=== PATIENT | female | born 1965 | race Caucasian/White ===

== ENCOUNTER 2016-07-30 09:32 | Emergency (ER) | payer OTHER, MEDICARE ==
[~2016-07-30] VITALS: Ht 162.6 cm; Wt 73.5 kg
[~2016-07-30 09:32] MED LIST: ALBUTEROL0.09 MG/A1 INH; AMOXIL500 MG PO; AZITHROMYCIN250 MG PO; AZITHROMYCIN500 MG PO; BACTROBAN OINT.15 GM TP; ELIMITE5% TOP; GUAIFENESIN-COD10 ML PO; LEVAQUIN500 MG PO; LIDODERM 5% PAT1 PAT EXT; MEDROL4 M2 PO; MOTRIN 600 MG600 MG PO; NASONEX17 GM NASB; NOVAPLUS V0.09 MG/Ac INH; PERCOCET 325 MG1 TA2 PO; PREDNISONE 10MG10 MG PO; PREDNISONE 20MG20 MG PO; PREDNISONE10 M2 PO; PREDNISONE10 MG PO; PREDNISONE50 MG PO; ROBITUSSIN W/CO10 ML PO; SYMBICORT 160/41 PUF INH; TESSALON PERLE100 M1 PO; TESSALON PERLE100 MG PO; VITAMIN D1000 IU PO; ZANTAC150 MG PO; ZITHROMAX Z-PA250 M1 PO; ZITHROMAX250 M2 PO
[2016-07-30 09:41] VITALS: BP 129/82
--- NOTE | 2016-07-30 10:56 | ED GENERAL ADULT ---
History of Present Illness General Chief Complaint: Upper Respiratory Sx/Fever Stated Complaint: FEVER,COUGH,CHEST CONGESTION Source: patient Exam Limitations: no limitations Vital Signs & Intake/Output Vital Signs & Intake/Output Vital Signs Date Time Temp Pulse Resp B/P Pulse O2 O2 Flow FiO2 Ox Delivery Rate 07/30 1218 Room Air Room Air 07/30 0941 97.0 90 20 129/82 96 Room Air Allergies Coded Allergies: NO KNOWN ALLERGIES (07/16/15) Reconcile Medications Benzonatate (Tessalon Perle) 100 MG CAPSULE 1 CAP PO TID COUGH Methylprednisolone. (Medrol) 4 MG TAB.DS.PK 1 DP PO AD INFLAMMATION 6 on day 1 then reduce by one tablet daily until gone Mometasone Furoate (Nasonex) 50 MCG SPRAY.PUMP 2 SPRAY NASB DAILY CONGESTION Prednisone 20 MG TABLET 40 MG PO DAILY ASTHMA TAKE FOR 4 DAYS, STARTING TOMORROW (07/31) Triage Note: PT PRESENTS TO ER C/O OF COUGH, RUNNY NOSE, BODY ACHES, AND DIARRHEA SINCE THURSDAY. PT AFEBRILE IN TRIAGE. HPI: Patient is a 50-year-old lady with a past medical history of asthma, multiple episodes of bronchitis, presents to [place] ED with complaints of cough, runny nose, fever,sore throat, and body aches. Patient reports that her symptoms started about 5 days ago. She reports that since the onset of her symptoms she has felt weak and tired and feels like "a truck ran over her". She is also reporting 3 episodes of diarrhea that started yesterday(no blood ins stool), and some chest tightness with shortness of breath. However she does deny any chest pain, palpitation, radiation of pain to the jaw on, diaphoresis, nausea/vomiting , or any extremity numbness. Patient uses albuterol and Symbicort and does not report any increased use or any recent flareup of asthma or hospitalization. (GABY ALTMAN,JACE) Triage Nurses Notes Reviewed? 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 see below for history Family History Hx Contributory? No (SUMAYA JC MD) Review of Systems Review of Systems Constitutional: Reports: diaphoresis. Denies: chills, fever, weakness. EENTM: Reports: ear pain. Denies: visual changes, eye pain, eye drainage, throat pain. Respiratory: Reports: cough, short of breath. Denies: sputum production, wheezing. Cardiovascular: Denies: orthopena, palpitations, peripheral edema. GI: Reports: diarrhea. Denies: distention, melena. Genitourinary: Denies: dysuria. Musculoskeletal: Reports: muscle pain. Skin: Denies: rash. Neurological/Psychological: Denies: confusion, depressed, dementia. Hematologic/Endocrine: Reports: no symptoms. (JACE GRIFFIN MD) Review of Systems Immunologic/Allergic: Reports: no symptoms. All Other Systems: Reviewed and Negative (SUMAYA JC MD) Physical Exam Physical Exam General Appearance: well developed/nourished, alert, awake Head: atraumatic, normal appearance Eyes: Bilateral: PERRL, EOMI. Ears, Nose, Throat: normal pharynx, no tonsilar exudates noted Neck: normal inspection, supple, full range of motion Respiratory: normal breath sounds, no respiratory distress Cardiovascular: regular rate/rhythm, edema Peripheral Pulses: 2+ dorsalis pedis (R), 2+ dorsalis pedis (L) Gastrointestinal: normal bowel sounds, soft, non-tender Back: normal inspection, normal range of motion Extremities: normal capillary refill, pedal edema (+1 b/l) Neurologic/Psych: awake, alert, oriented x 3, normal gait, normal mood/affect Skin: intact, normal color (JACE GRIFFIN MD) Physical Exam Lymphatic: adenopathy Core Measures ACS in differential dx? No CVA/TIA Diagnosis: No Severe Sepsis Present: No Septic Shock Present: No (SUMAYA JC MD) Progress Differential Diagnoses I considered the following diagnoses in my evaluation of the patient: Influenza, bronchitis,PNA, Asthma exercabation, viral gastroeeneteritis Plan of Care: Orders Procedure Date/time Status COMPREHENSIVE METABOLIC PANEL 07/30 1110 Complete CBC WITHOUT DIFFERENTIAL 07/30 1110 Complete RAPID VIRAL INFLUENZA A 07/30 1041 Complete XRY-CHEST XRAY, PA AND LATERAL 07/30 UNK Active Laboratory Tests 07/30/16 1133: Anion Gap 9, Estimated GFR > 60, BUN/Creatinine Ratio 15.0, Glucose 94, Calcium 9.5, Total Bilirubin 0.6, AST 72 H, ALT 70 H, Alkaline Phosphatase 109, Total Protein 7.8, Albumin 4.5, Globulin 3.3, Albumin/Globulin Ratio 1.4, CBC w Diff NO MAN DIFF REQ, RBC 4.59, MCV 87.9, MCH 30.0, RDW 13.1, MPV 7.6, Gran % 51.3, Lymphocytes % 35.7, Monocytes % 9.7 H, Eosinophils % 2.5, Basophils % 0.8, Absolute Granulocytes 4.2, Absolute Lymphocytes 2.9, Absolute Monocytes 0.8 H, Absolute Eosinophils 0.2, Absolute Basophils 0.1, PUBS MCHC 34.1 Diagnostic Imaging: Discussed w/RAD: Radiology Read. Radiology Impression: no acute abnormality CXR Impression: no acute abnormality Initial ED EKG: none (GABY ALTMAN,JACE) Differential Diagnoses I considered the following diagnoses in my evaluation of the patient: (SUMAYA JC MD) Departure Departure Disposition: HOME OR SELF CARE Condition: Stable Clinical Impression Primary Impression: URI (upper respiratory infection) Ruled Out Impressions: Influenza Referrals: KEYONA LANGLEY (PCP/Family) Additional Instructions: Please see immediate medical attention if your condition worsens Please complete taking Prednisone for a total course of five days Please continue using your symbicort and albuterol inhaler as instructed Please contact your Primary care doctor in 1 week, and Dr Xavier by Thursday. Departure Forms: Customer Survey General Discharge Information Prescriptions: Current Visit Scripts Prednisone 40 MG PO DAILY #8 TAKE FOR 4 DAYS, STARTING TOMORROW (07/31) (GABY ALTMAN,JACE) Resident Co-Sign Statement Statement: ED Attending supervision documentation- x I saw and evaluated the patient. I have also reviewed all the pertinent lab results and diagnostic results. I agree with the findings and the plan of care as documented in the Resident's documentation. [] I have reviewed the ED Record and agree with the Resident's documentation. [] Additions or exceptions (if any) to the Resident's note and plan are summarized below: [] (BABITA ALTMAN,SUMAYA) Critical Care Note Critical Care Note Critical Care Time: non-applicable (GABY ALTMAN,JACE)
[2016-07-30 11:46] LABS: ABSOLUTE BASOPHIL COUNT 0.1 /CUMM (0.0-0.2); ABSOLUTE EOSINOPHIL COUNT 0.2 /CUMM (0.0-0.7); ABSOLUTE GRANULOCYTE CT 4.2 /CUMM (1.4-6.5); ABSOLUTE LYMPH COUNT 2.9 /CUMM (1.2-3.4); ABSOLUTE MONOCYTE COUNT 0.8 /CUMM (0.10-0.60); BASOPHIL % 0.8 % (0.0-2.0); EOSINOPHIL % 2.5 % (0-5); GRANULOCYTE % 51.3 % (42.2-75.2); HEMATOCRIT 40.3 % (37-47); MEAN CORPUSCULAR HGB CONC 34.1 G/DL (33.0-37.0); MEAN CORPUSCULAR VOLUME 87.9 FL (81.0-99.0); MEAN PLATELET VOLUME 7.6 FL (7.4-10.4); PLATELET COUNT 334 /CUMM (130-400); RBC DISTRIBUTION WIDTH 13.1 % (11.5-14.5); RED BLOOD CELL CT 4.59 /CUMM (4.20-5.40); WHITE BLOOD CELL COUNT 8.2 /CUMM (4.8-10.8)
[2016-07-30] MEDS ORDERED: PREDNISONE20 M1 PO (12:25)
--- NOTE | 2016-07-31 15:51 | RADIOLOGY REPORT ---
EXAMINATION: CHEST 2 VIEWS CLINICAL INFORMATION: Cough. Dyspnea. Chills. COMPARISON: 09/15/2015. TECHNIQUE: PA and lateral views of the chest were obtained. FINDINGS: The cardiac silhouette is not enlarged. The mediastinal and hilar contours are unremarkable. There are neither pleural effusions nor pneumothoraces. There are no consolidations. The osseous structures are unremarkable. IMPRESSION: No evidence for acute disease.
== END 2016-07-30 12:54 ==
LOC: ERH 09:32
PROVIDERS: Student in an Organized Health Care Education/Training Program
DX: J06.9 Acute upper respiratory infection, unspecified (principal); J11.1 Influenza due to unidentified influenza virus with other respiratory manifestations
CPT/HCPCS: 87804; 87804-59

== ENCOUNTER 2017-08-16 08:09 | Emergency (ER) | payer OTHER, MEDICARE ==
[~2017-08-16 08:09] MED LIST changes: +DELTASONE20 MG PO; +IBUPROFEN600 M1 PO; +PREDNISONE20 M1 PO; +PREDNISONE50 M1 PO
--- NOTE | 2017-08-16 09:04 | ED INFLUENZA/URI COMPLAINT ---
History of Present Illness General Chief Complaint: Upper Respiratory Sx/Fever Stated Complaint: URI Source: patient Exam Limitations: no limitations Vital Signs & Intake/Output Vital Signs & Intake/Output Vital Signs Date Time Temp Pulse Resp B/P B/P Pulse O2 O2 Flow FiO2 Mean Ox Delivery Rate 08/16 928 97.1 61 15 150/85 99 Room Air Room Air 08/16 912 Room Air Room Air 08/16 812 96.0 67 20 159/92 98 Room Air Allergies Coded Allergies: NO KNOWN ALLERGIES (07/16/15) Reconcile Medications Azithromycin (Zithromax) 250 MG TABLET 1 DP PO AD BRONCHITIS 2 the first day followed by 1 for days 2-5 Benzonatate (Tessalon Perle) 100 MG CAPSULE 1 CAP PO TID COUGH Codeine Phosphate/Guaifenesi (Cheratussin AC Syrup) 10 MG-100 MG/5 ML LIQUID 10 ML PO Q6H PRN COUGH Ibuprofen 600 MG TABLET 1 TAB PO TID PRN PAIN with food Methylprednisolone. (Medrol) 4 MG TAB.DS.PK 1 DP PO AD INFLAMMATION 6 on day 1 then reduce by one tablet daily until gone Mometasone Furoate (Nasonex) 50 MCG SPRAY.PUMP 2 SPRAY NASB DAILY CONGESTION Prednisone 50 MG TABLET 1 TAB PO DAILY ASTHMA Prednisone 50 MG TABLET 1 TAB PO DAILY BRONCHITIS Prednisone (Deltasone) 20 MG TABLET 2 TAB PO DAILY Bronchitis Prednisone 20 MG TABLET 40 MG PO DAILY ASTHMA TAKE FOR 4 DAYS, STARTING TOMORROW (07/31) Triage Note: PT C/O DRY COUGH X1 WEEK. REPORTS FEELING WARM YESTERDAY, AFEBRILE IN TRIAGE. FEELS SOB WITH EXERTION. DENIES ANY BODY ACHES/MUSCLE PAINS/HEADACHE. HAS HX OF BRONCHITIS. 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 Triage Nurses Notes Reviewed? yes Onset: Gradual Duration: week(s): (2) Timing: recent history Severity: mild, moderate Severity Numbers: 6 Prior Episodes/Possible Cause: frequent episodes, chronic episodes No Modifying Factors: none Associated Symptoms: cough, nasal congestion, nasal drainage, shortness of breath, wheezing LMP (ages 10-50): unknown : No Patient currently breastfeeds: No HPI: 51-year-old female past medical history of chronic bronchitis/asthma presents for evaluation of cough, congestion, shortness of breath and chest pain. Patient states symptoms started about 2 weeks ago and have been persistent. She reports cough is dry and is worse at night causing difficulty sleeping. She has been using her inhalers without significant improvement. Patient states that she's been coughing so much is making her chest hurt. She states that she has had multiple similar episodes in the past. She denies any hemoptysis lower extremity edema recent surgery recent trauma or estrogen use. She does not drink smoke or use any drugs. She does report some subjective fevers at home. No nausea vomiting or diarrhea. No body aches. No urinary symptoms. (Abdelrahman Taylor) Past History Travel History Traveled to [place] past 21 day No Medical History Any Pertinent Medical History? 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 No (Abdelrahman Taylor) Review of Systems Review of Systems Constitutional: Reports: fever. EENTM: Reports: nasal congestion. Respiratory: Reports: see HPI, cough, short of breath, wheezing. Cardiovascular: Reports: see HPI, chest pain. GI: Reports: no symptoms. Genitourinary: Reports: no symptoms. Musculoskeletal: Reports: no symptoms. Skin: Reports: no symptoms. Neurological/Psychological: Reports: no symptoms. Hematologic/Endocrine: Reports: no symptoms. Immunologic/Allergic: Reports: no symptoms. All Other Systems: Reviewed and Negative (Abdelrahman Taylor) Physical Exam Physical Exam General Appearance: well developed/nourished, no apparent distress, alert, awake Head: atraumatic, normal appearance Eyes: Bilateral: normal appearance, PERRL, EOMI. Ears, Nose, Throat: moist mucous membrane, hearing grossly normal, nasal congestion, nasal drainage (clear) Neck: normal inspection, supple, full range of motion, no jvd Respiratory: no respiratory distress, wheezing (mild), chest wall is tender to palpation over the sternum and bilateral chest Cardiovascular: regular rate/rhythm, normal peripheral pulses Peripheral Pulses: 2+ radial (R), 2+ radial (L) Gastrointestinal: normal bowel sounds, soft, non-tender, no organomegaly Back: normal inspection, normal range of motion, no vertebral tenderness, thoracic paraspinous muscles tender to palpation bilaterally Extremities: normal inspection, normal range of motion, no edema Neurologic/Psych: no motor/sensory deficits, awake, alert, oriented x 3, normal gait Skin: intact, normal color, warm/dry Lymphatic: no anterior cervical nestor Core Measures Sepsis Present: No Sepsis Focused Exam Completed? No (Fco ADRIAN,Abdelrahman) Progress Differential Diagnosis: influenza, otitis, pneumonia, pharyngitis, sinusitis, acute/chronic bronchitis, asthma exacerbation, COPD exacerbation Plan of Care: Orders Procedure Date/time Status EKG 08/16 904 Active Patient seen and evaluated. She is history of chronic bronchitis and is reporting cough congestion and shortness of breath. She's had multiple similar episodes in the past. She feels like this feels like her usual episodes. There is mild wheezing auscultated bilaterally. Chest x-ray is negative for pneumonia. EKG does not show any acute changes. Patient does have reproducible tenderness to palpation of her chest and with range of motion of her upper extremities. She is not tachycardic or hypoxic. No tachypnea. No recent surgery or DVT/PE risk factors. Considered PE and acute coronary syndrome however symptoms present for greater than 2 weeks patient has a history of similar symptoms patient's vitals are stable she appears currently well. EKG does not show any signs of ischemia or right heart strain. Patient will be given a prescription for prednisone and Cheratussin. Advised her to rest. Plenty of fluids. Follow-up with laborer/key man. Discussed return precautions in detail patient appears completely well and agrees the plan. Diagnostic Imaging: Viewed by Me: Radiology Read. Discussed w/RAD: Radiology Read. Radiology Impression: PATIENT: ECHO THORNE PRESENT AGE: 51 PATIENT ACCOUNT NO: [id number] : 63 LOCATION: [facility] ORDERING PHYSICIAN: Gayle Norton MD SERVICE DATE: 08/16/17 EXAM TYPE: RAD - XRY -CHEST XRAY, TWO VIEWS EXAMINATION: XR CHEST CLINICAL INFORMATION: Shortness of breath. History of bronchitis. COMPARISON: 07/30/2016 TECHNIQUE: 2 views obtained. FINDINGS: The cardiac and mediastinal silhouettes are normal in appearance. The lung volumes are decreased. No focal consolidation or atelectasis. There is a mild thoracic kyphosis. IMPRESSION: Low lung volumes. No acute consolidation or atelectasis. DICTATED BY: Robert Jesus MD DATE/TIME DICTATED:08/16/17910 SALESFORCE BUSINESS ANALYST:CHRISTINE DATE/TIME TRANSCRIBED:910 CONFIDENTIAL, DO NOT COPY WITHOUT APPROPRIATE AUTHORIZATION. Initial ED EKG: normal sinus rhythm, BORDERLINE INFERIOR Q WAVES (Abdelrahman Taylor) Departure Departure Disposition: HOME OR SELF CARE Condition: Stable Clinical Impression Primary Impression: Acute bronchitis Qualifiers: Bronchitis organism: unspecified organism Qualified Code: J20.9 - Acute bronchitis, unspecified Referrals: Polly Duarte APRN (PCP/Family) Usman Rodas MD Additional Instructions: Rest and drink plenty of fluids. Take prednisone as directed for the full course. Use albuterol inhaler 2 puffs every 4-6 hours as needed for cough or shortness of breath. Cheratussin can use as needed for cough this may cause drowsiness. Use ibuprofen for pain. Monitor symptoms follow-up with her primary care doctor and laborer/key man. Return to the emergency department with any concerns. Departure Forms: Customer Survey General Discharge Information Prescriptions: Current Visit Scripts Prednisone 1 TAB PO DAILY #5 TAB Codeine Phosphate/Guaifenesi (Cheratussin AC Syrup) 10 ML PO Q6H PRN COUGH #240 ML (Abdelrahman Taylor) PA/MANAGER PROJECT MANAGEMENT Co-Sign Statement Statement: ED Attending supervision documentation- [] I saw and evaluated the patient. I have also reviewed all the pertinent lab results and diagnostic results. I agree with the findings and the plan of care as documented in the PA's/MANAGER PROJECT MANAGEMENT's documentation. [X] I have reviewed the ED Record and agree with the PA's/MANAGER PROJECT MANAGEMENT's documentation. [] Additions or exceptions (if any) to the PAs/MANAGER PROJECT MANAGEMENT's note and plan are summarized below: [] (Errol ALTMAN,Gayle)
--- NOTE | 2017-08-16 09:16 | RADIOLOGY REPORT ---
EXAMINATION: XR CHEST CLINICAL INFORMATION: Shortness of breath. History of bronchitis. COMPARISON: 07/30/2016 TECHNIQUE: 2 views obtained. FINDINGS: The cardiac and mediastinal silhouettes are normal in appearance. The lung volumes are decreased. No focal consolidation or atelectasis. There is a mild thoracic kyphosis. IMPRESSION: Low lung volumes. No acute consolidation or atelectasis.
[2017-08-16] MEDS ORDERED: PREDNISONE50 M1 PO (09:25)
[2017-08-16] MEDS ORDERED: CHERATUSSIN AC118 M1 PO (09:26)
[2017-08-16 09:29] VITALS: BP 150/85
== END 2017-08-16 09:29 ==
LOC: ERH 08:09
DX: J20.9 Acute bronchitis, unspecified (principal); R07.9 Chest pain, unspecified
CPT/HCPCS: 71046; 93005; 93010

== ENCOUNTER 2017-12-15 08:07 | Emergency (ER) | payer OTHER, MEDICARE ==
[~2017-12-15] VITALS: Ht 162.6 cm; Wt 90.7 kg
[~2017-12-15 08:07] MED LIST changes: +CHERATUSSIN AC118 M1 PO
--- NOTE | 2017-12-15 08:10 | ED INFLUENZA/URI COMPLAINT ---
History of Present Illness General Chief Complaint: Upper Respiratory Sx/Fever Stated Complaint: FEVER,COUGH,CONGESTION X 2 WEEKS Source: patient Exam Limitations: no limitations Vital Signs & Intake/Output Vital Signs & Intake/Output Vital Signs Date Time Temp Pulse Resp B/P B/P Pulse O2 O2 Flow FiO2 Mean Ox Delivery Rate 12/15 0811 96.5 71 16 152/93 97 Room Air Allergies Coded Allergies: NO KNOWN ALLERGIES (07/16/15) Reconcile Medications Azithromycin (Zithromax) 250 MG TABLET 1 DP PO AD BRONCHITIS 2 the first day followed by 1 for days 2-5 Benzonatate (Tessalon Perle) 100 MG CAPSULE 1 CAP PO TID COUGH Codeine Phosphate/Guaifenesi (Cheratussin AC Syrup) 10 MG-100 MG/5 ML LIQUID 10 ML PO Q6H PRN COUGH Desloratadine (Clarinex) 5 MG TABLET 1 TAB PO DAILY ALLERGIES Ibuprofen 600 MG TABLET 1 TAB PO TID PRN PAIN with food [MAGIC MOUTHWASH] 10 ML PO TID PRN SORE THROATE EQUAL PARTS 1:1:1 SWISH AND SWALLOW Methylprednisolone. (Medrol) 4 MG TAB.DS.PK 1 DP PO AD INFLAMMATION 6 on day 1 then reduce by one tablet daily until gone Mometasone Furoate (Nasonex) 50 MCG SPRAY.PUMP 2 SPRAY NASB DAILY CONGESTION Mometasone Furoate (Nasonex) 50 MCG SPRAY.PUMP 2 SPRAY NASB DAILY ALLERGIES Olopatadine HCl (Pataday) 0.2 % DROPS 1 GTT OPH DAILY ALLERGIES Prednisone 50 MG TABLET 1 TAB PO DAILY ASTHMA Prednisone 50 MG TABLET 1 TAB PO DAILY BRONCHITIS Prednisone (Deltasone) 20 MG TABLET 2 TAB PO DAILY Bronchitis Prednisone 20 MG TABLET 40 MG PO DAILY ASTHMA TAKE FOR 4 DAYS, STARTING TOMORROW (07/31) Triage Nurses Notes Reviewed? yes Onset: Gradual Duration: constant Timing: recent history Severity: moderate Severity Numbers: 5 HPI: Patient is a 52-year-old female with a past medical history of asthma who presents emergency room with concerns of a 2 week history of nonproductive cough nasal congestion and runny nose and head congestion itchy scratchy throat Patient takes unknown allergy medication prescribed by mandolin repairer Dr. Xavier. Denies any chest pain arm pain jaw pain nausea vomiting fever chills hemoptysis leg swelling Patient does take albuterol inhaler (Laith Mcmillan) Past History Travel History Traveled to [place] past 21 day No Medical History Any Pertinent Medical History? 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 No (Laith Mcmillan) Review of Systems Review of Systems Constitutional: Reports: see HPI. Denies: chills, fever. EENTM: Reports: see HPI, nasal congestion. Respiratory: Reports: see HPI, cough. Cardiovascular: Reports: no symptoms. GI: Reports: no symptoms. Genitourinary: Reports: no symptoms. Musculoskeletal: Reports: no symptoms. Skin: Reports: no symptoms. Neurological/Psychological: Reports: no symptoms. Hematologic/Endocrine: Reports: no symptoms. Immunologic/Allergic: Reports: no symptoms. All Other Systems: Reviewed and Negative (Laith Mcmillan) Physical Exam Physical Exam General Appearance: no apparent distress, alert Head: atraumatic Eyes: Bilateral: normal appearance, PERRL, EOMI. Ears, Nose, Throat: moist mucous membrane, hearing grossly normal, Tympanic normal, pharynx normal, nasal congestion, nasal drainage Respiratory: normal breath sounds, chest non-tender, no respiratory distress Cardiovascular: regular rate/rhythm Peripheral Pulses: 2+ radial (R) Gastrointestinal: normal bowel sounds, soft, non-tender Extremities: normal inspection, no edema Neurologic/Psych: no motor/sensory deficits, awake, alert, oriented x 3 Skin: intact, normal color, warm/dry Core Measures Sepsis Present: No Sepsis Focused Exam Completed? No (Laith Mcmillan) Progress Differential Diagnosis: influenza, meningitis, neutropenia, otitis, pneumonia, pharyngitis, sinusitis Plan of Care: Differential diagnosis include allergies, allergic rhinitis, sinusitis Patient on initial presentation is resting comply bedside no apparent distress clear lungs auscultation afebrile daily history of present illness and exam finds patient will be treated for concerns of seasonal allergies and allergic rhinitis Initial ED EKG: none (Laith Mcmillan) Departure Departure Disposition: HOME OR SELF CARE Condition: Stable Clinical Impression Primary Impression: Seasonal allergic rhinitis Secondary Impressions: Pharyngitis Referrals: Polly Duarte APRN (PCP/Family) Additional Instructions: As discussed begin the prescription of Clarinex as directed for your allergies if this is different from their home allergy medication pills. Begin the prescription Magic mouth WASH for sore throat Pataday for eyedrops and Nasonex for nasal congestion. Begin asiw-ees-tacynwm Sudafed for congestion. If no better in 2 days follow-up with her mandolin repairer. If symptoms worsen return to emergency room Departure Forms: Customer Survey General Discharge Information Prescriptions: Current Visit Scripts Olopatadine HCl (Pataday) 1 GTT OPH DAILY #1 BOT Mometasone Furoate (Nasonex) 2 SPRAY NASB DAILY #1 INHAL [MAGIC MOUTHWASH] 10 ML PO TID PRN SORE THROATE #100 ML EQUAL PARTS 1:1:1 SWISH AND SWALLOW Desloratadine (Clarinex) 1 TAB PO DAILY #30 TAB (Laith Mcmillan) PA/CRIME SCENE EXAMINER Co-Sign Statement Statement: ED Attending supervision documentation- I saw and evaluated the patient. I have also reviewed all the pertinent lab results and diagnostic results. I agree with the findings and the plan of care as documented in the PA's/CRIME SCENE EXAMINER's documentation. x I have reviewed the ED Record and agree with the PA's/CRIME SCENE EXAMINER's documentation. [] Additions or exceptions (if any) to the PAs/CRIME SCENE EXAMINER's note and plan are summarized below: [] (Miri ALTMAN,Nas)
[2017-12-15 08:11] VITALS: BP 152/93
[2017-12-15] MEDS ORDERED: NASONEX17 GM NASB (08:47)
[2017-12-15] MEDS ORDERED: CLARINEX5 M1 PO (08:47)
[2017-12-15] MEDS ORDERED: MAGIC MOUTHWASH PO (08:47)
[2017-12-15] MEDS ORDERED: PATADAY2.5 ML OPH (08:47)
== END 2017-12-15 08:56 ==
LOC: ERH 08:07
DX: J30.2 Other seasonal allergic rhinitis (principal); J02.9 Acute pharyngitis, unspecified